=== PATIENT | male | born 1975 | race Caucasian/White ===

== ENCOUNTER 2020-12-31 13:44 | Emergency (ER) | payer MEDICAID ==
[~2020-12-31] VITALS: Ht 185.4 cm; Wt 102.0 kg
--- NOTE | 2020-12-31 14:08 | NUR ---
Called to triage, not in lobby.
--- NOTE | 2020-12-31 15:23 | NUR ---
KNIFE AND SISSORS LOCKED UP WITH SECURITY
[2020-12-31 15:41] LABS: URINE AMPHETAMINE SCREEN NEGATIVE (Neg); URINE BARBITUATE SCREEN NEGATIVE (Neg); URINE BENZODIAZEPINES SCREEN NEGATIVE (Neg); URINE CANNABINOID SCREEN POSITIVE (Neg); URINE COCAINE SCREEN NEGATIVE (Neg); URINE METHADONE SCREEN NEGATIVE (Neg); URINE OPIATE SCREEN NEGATIVE (Neg); URINE PHENCYCLIDINE SCREEN NEGATIVE (Neg)
[2020-12-31 15:55] LABS: BASOPHILS # (AUTO) 0.1 X10'3 (0-0.2); BASOPHILS % (AUTO) 0.6 % (0-1); EOSINOPHILS # (AUTO) 0.1 X10'3 (0-0.9); HEMATOCRIT 43.7 % (42.0-52.0); HEMOGLOBIN 14.8 g/dl (14.0-17.9); LYMPHOCYTES # (AUTO) 1.8 X10'3 (1.1-4.8); MEAN CORPUSCULAR HGB CONC 33.9 g/dL (33.0-36.5); MEAN CORPUSCULAR VOLUME 94.3 FL (78-98); MEAN PLATELET VOLUME 8.9 FL (7.4-10.4); MONOCYTES # (AUTO) 1.1 X10'3 (0-0.9); MONOCYTES % (AUTO) 8.9 % (2-12); NEUTROPHILS # (AUTO) 9.6 X10'3 (1.8-7.7); NEUTROPHILS % (AUTO) 75.5 % (42-75); PLATELET COUNT 294 X10'3 (140-440); RED BLOOD COUNT 4.64 X10'6 (4.70-6.10); RED CELL DISTRIBUTION WIDTH 14.5 % (11.5-14.5); WHITE BLOOD COUNT 12.7 X10'3 (4.5-11.0)
[2020-12-31 16:10] LABS: ALANINE AMINOTRANSFERASE 61 U/L (12-78); ALBUMIN 3.8 G/DL (3.4-5.0); ALBUMIN/GLOBULIN RATIO 1.2 (1.1-1.5); ALKALINE PHOSPHATASE 68 IU/L (46-116); ANION GAP 7 (8-16); ASPARTATE AMINO TRANSFERASE 34 U/L (10-37); BILIRUBIN,TOTAL 0.2 MG/DL (0.1-1.0); BLOOD UREA NITROGEN 17 MG/DL (7-18); BUN/CREATININE RATIO 8.5 (5.4-32.0); CALCIUM 9.1 MG/DL (8.5-10.1); CHLORIDE 108 MMOL/L (99-107); GLUCOSE 102 MG/DL (70-104); POTASSIUM 4.5 MMOL/L (3.5-5.1); SODIUM 139 MMOL/L (135-145); TOTAL CARBON DIOXIDE 23.6 MMOL/L (24-32); eGFR 37 ML/MIN
[2020-12-31 16:19] LABS: ETHANOL 0.269 GM/DL (0.0-0.010)
[2020-12-31 16:23] LABS: ACETAMINOPHEN < 2.0 UG/ML (10-30)
[2020-12-31 16:46] LABS: CLARITY,URINE CLEAR (Clear); COLOR,URINE STRAW (Yellow); GLUCOSE, URINE NEGATIVE (Neg); KETONES,URINE NEGATIVE (Neg); LEUKOCYTE ESTERASE ,URINE NEGATIVE (Neg); NITRITES, URINE NEGATIVE (Neg); OCCULT BLOOD,URINE NEGATIVE (Neg); PROTEIN,URINE NEGATIVE (Neg); UROBILINOGEN,URINE 0.2 E.U/dL (0.2-1.0)
[2020-12-31 16:48] LABS: UA COLLECTION TYPE NON-SPECIFIED
--- NOTE | 2020-12-31 17:39 | NUR ---
MENTAL HEALTH CAN NOT ELEVATE PT WHILE HIS ETOH LEVEL IS SO HIGH
--- NOTE | 2020-12-31 19:08 | NUR ---
The patient sat up briefly and ate his dinner but then immediately went to sleep. He mumbled most of his replies to questions being asked. He is very intoxicated. At one point was yelling obsenities at peer. He will be evaluted by [facility] when ETOH level is lower.
--- NOTE | 2020-12-31 22:19 | NUR ---
The patient has been sleeping but periodically wakes to drink water.
--- NOTE | 2020-12-31 23:23 | NUR ---
The patient appears to be sleeping
--- NOTE | 2021-01-01 00:59 | NUR ---
The patient up to use the bathroom. Given a snack and fluids. He is currently resting on his bed.
--- NOTE | 2021-01-01 02:23 | NUR ---
The patient appears to be sleeping
--- NOTE | 2021-01-01 05:46 | NUR ---
The patient has appeared to have been sleeping the majority of the night but was up once to use the restroom and to have a snack.
[2021-01-01 06:03] VITALS: BP 129/82
--- NOTE | 2021-01-01 09:00 | NUR ---
RN introduced self to pt. and attempted to do 1:1 at bedside. When asked about SI pt. states, "Yes...Yes!" pt. irritated and states, "I just went over all this with that lady ([facility] social professionals) with those shoes and salmon pants". Pt. then turned over and pulled blankets over his head.
[2021-01-01] MEDS ORDERED: nicotine 21mg patch - 24 hr TD ONE (09:30)
--- NOTE | 2021-01-01 10:32 | NUR ---
[facility] CALLED SAYING PT IS ACCEPTED TO [facility] PENDING COVID TEST.
--- NOTE | 2021-01-01 11:00 | NUR ---
RN spoke with Jian from [facility]. Report given and pt.'s acceptance is pending negative COVID test. TAMMIE COVID test performed and results pending. Pt. sitting at side of bed and in no apparent distress.
[2021-01-01] MEDS ORDERED: LORazepam 1 MG tablet PO PRN (11:10)
--- NOTE | 2021-01-01 14:11 | NUR ---
[facility] OFFICE CALLED FOR COVID RESULTS. INFORMED THAT PT WAS NEGATIVE AND RESULTS FAXED REQUESTED TO THE [facility] Addendum: 01/01/21 at 1414 by CHI[facility] OFFICE CALLED, PT HAS BEEN ACCEPTED TO [facility]; DR Delfino SIMENATL IS THE ACCEPTING MD AND [facility] TUTOR WILL BE HERE SHORTLY
== END 2021-01-01 14:41 ==
LOC: ER 13:45
DX: R45.851 Suicidal ideations (principal); Z20.822 Contact with and (suspected) exposure to COVID-19; F17.200 Nicotine dependence, unspecified, uncomplicated
CPT/HCPCS: 36415; 80053; 80305; 80320; 80329; 81003; 84443; 85025; 87426; 99285

== ENCOUNTER 2021-01-04 03:18 | Emergency (ER) | payer MEDICAID ==
[~2021-01-04] VITALS: Ht 185.4 cm; Wt 100.0 kg
[2021-01-04 03:40] VITALS: BP 137/106
--- NOTE | 2021-01-04 05:08 | NUR ---
Patient states he came here tonight and has been having thoughts of self harm without specific plan but mentions maybe motor vehicle or knives. Patient states he attemted to kill himself within the last 3 months with "pills and a knife". Patient states he has no desire to leave unit and is here because he needs help. Patient denies any needs at this time for food/hygiene. Smells of marijuana and alcohol and drifts off to sleep easily. In view of RN station.
--- NOTE | 2021-01-04 06:13 | NUR ---
Patient received his Medical ID # from registration so that he can black pickler his prescriptions which he obtained recently from [facility]. Patient discharged and when told he may leave he rolled back over to sleep and did not want to get up to get dressed. Security summoned to bedside to assist patient to get dressed.
[2021-01-05] MEDS ORDERED: HYDR12.55 PO ×2 (04:20→04:27)
[2021-01-05] MEDS ORDERED: FLUO10CA28 PO ×2 (04:20→04:27)
[2021-01-05] MEDS ORDERED: CEPH250T PO (04:27)
== END 2021-01-04 06:18 | disposition home or self-care (01) ==
LOC: ER 03:18
DX: F10.129 Alcohol abuse with intoxication, unspecified (principal); F32.9 Major depressive disorder, single episode, unspecified; Y90.0 Blood alcohol level of less than 20 mg/100 ml
CPT/HCPCS: 99281

== ENCOUNTER 2021-01-05 02:48 | Emergency (ER) | payer MEDICAID ==
[~2021-01-05] VITALS: Ht 185.4 cm; Wt 100.0 kg
[2021-01-05] MEDS ORDERED: TETanus/Pertussis (Acell)/Diphther VAC/PF (Tdap-Adult) 0.5ml syringe IMVAC ONE (03:20)
[2021-01-05] MEDS ORDERED: LIDOcaine 1% W/epiNEPHrine 1:200,000 10ml vial IJ ONE (03:20)
[2021-01-05] MEDS ORDERED: HYDR12.55 PO ×2 (04:20→04:27)
[2021-01-05] MEDS ORDERED: FLUO10CA28 PO ×2 (04:20→04:27)
[2021-01-05] MEDS ORDERED: HYDROchlorothiazide 25mg tablet PO ONE (04:25)
[2021-01-05] MEDS ORDERED: chlordiazePOXIDE 25mg capsule PO ONE (04:25)
[2021-01-05] MEDS ORDERED: FLUoxetine 10mg capsule PO ONE (04:25)
[2021-01-05] MEDS ORDERED: CEPH250T PO (04:27)
[2021-01-05 04:39] VITALS: BP 152/79
== END 2021-01-05 05:11 | disposition home or self-care (01) ==
LOC: ER 02:48
DX: S51.811A Laceration without foreign body of right forearm, initial encounter (principal); F10.129 Alcohol abuse with intoxication, unspecified; R45.851 Suicidal ideations; F32.9 Major depressive disorder, single episode, unspecified; Z20.3 Contact with and (suspected) exposure to rabies; Z72.0 Tobacco use; Z79.2 Long term (current) use of antibiotics; Z79.899 Other long term (current) drug therapy; X58.XXXA Exposure to other specified factors, initial encounter; Y93.89 Activity, other specified; Y92.89 Other specified places as the place of occurrence of the external cause; Y99.8 Other external cause status; Y90.9 Presence of alcohol in blood, level not specified
CPT/HCPCS: 12002; 90471; 90715; 99284

== ENCOUNTER 2021-01-06 19:31 | Emergency (ER) | payer MEDICAID ==
[~2021-01-06] VITALS: Ht 185.4 cm; Wt 100.2 kg
[~2021-01-06 19:31] MED LIST: CEPH250T PO; FLUO10CA28 PO; HYDR12.55 PO
[2021-01-06 19:39] VITALS: BP 159/98
== END 2021-01-06 21:20 | disposition home or self-care (01) ==
LOC: ER 19:32
DX: S51.811D Laceration without foreign body of right forearm, subsequent encounter (principal); F32.9 Major depressive disorder, single episode, unspecified; Z79.2 Long term (current) use of antibiotics; Z79.899 Other long term (current) drug therapy; X58.XXXD Exposure to other specified factors, subsequent encounter
CPT/HCPCS: 99284